=== PATIENT | female | born 1980 | race Caucasian/White ===

== ENCOUNTER 2018-01-12 11:46 | Outpatient (CLI) | payer OTHER ==
[2018-01-20 11:21] LABS: MISCELLANEOUS TEST LAB See Separate Report
== END 2018-01-20 ==
LOC: M LAB 11:46
DX: Z52.4 Kidney donor (principal)
CPT/HCPCS: 99001

== ENCOUNTER 2018-08-31 13:25 | Day surgery (SDC) | payer OTHER ==
[2018-08-31] MEDS: NS 1,000 ML IV (14:28)
[2018-08-31] MEDS ORDERED: fentaNYL 100 MCG/2 ML INJECTION (J3010) As Ordered (15:31)
[2018-08-31] MEDS ORDERED: PROPOFOL 200 MG/20 ML VIAL As Ordered ×2 (15:36→15:37)
[2018-08-31] MEDS ORDERED: LIDOCAINE 2% INJ 100 MG/5 ML SDV (FOR ANES.) As Ordered (15:37)
== END 2018-08-31 16:24 | disposition home or self-care (01) ==
LOC: M OPP 16:24
DX: Z12.11 Encounter for screening for malignant neoplasm of colon (principal); Z86.010 Personal history of colon polyps; K64.0 First degree hemorrhoids; Z98.0 Intestinal bypass and anastomosis status; F45.8 Other somatoform disorders; D64.9 Anemia, unspecified; E16.2 Hypoglycemia, unspecified; M12.9 Arthropathy, unspecified; Z79.899 Other long term (current) drug therapy; Z88.0 Allergy status to penicillin; Z87.828 Personal history of other (healed) physical injury and trauma; Z90.5 Acquired absence of kidney; Z98.84 Bariatric surgery status; Z98.51 Tubal ligation status; Z80.0 Family history of malignant neoplasm of digestive organs
CPT/HCPCS: 45378

== ENCOUNTER → 2019-01-26 | Outpatient (REF) | payer OTHER ==
[~2019-01-26] MED LIST: BIOT50004 PO; CENTCHW3 PO; CITRTAB10 PO; FERR325T3 PO; OMEP40CA2 PO; SYNT150T; VITA500055 PO; VITA500C19 PO; VITA500T3 PO
== END ==
LOC: M SFHCLERA 14:45
PROVIDERS: ATTEND Physician Assistant
DX: R50.9 Fever, unspecified (principal)

== ENCOUNTER → 2022-03-02 | Outpatient (CLI) | payer OTHER ==
[~2022-03-02] MED LIST changes: +CYAN500T14 PO; +E-Z-GAS II EFFERVESCENT PACKET (SODIUM BICARB./CITRIC ACID/SIMETHICONE) As Ordered ONE; +E-Z-HD 98% w/w 340GM SUSP BTL As Ordered ONE; +E-Z-PAQUE 96% w/w SUSP 176GM BTL As Ordered ONE; -OMEP40CA2 PO; +OMEP40CA4 PO; -VITA500T3 PO
== END ==
LOC: M RAD 07:48
PROVIDERS: ATTEND Family Medicine
DX: K21.9 Gastro-esophageal reflux disease without esophagitis (principal); K44.9 Diaphragmatic hernia without obstruction or gangrene; Z98.84 Bariatric surgery status

== ENCOUNTER → 2022-05-27 | Outpatient (REF) | payer OTHER ==
[~2022-05-27] MED LIST changes: +CREO3600 PO; -E-Z-GAS II EFFERVESCENT PACKET (SODIUM BICARB./CITRIC ACID/SIMETHICONE) As Ordered ONE; -E-Z-HD 98% w/w 340GM SUSP BTL As Ordered ONE; -E-Z-PAQUE 96% w/w SUSP 176GM BTL As Ordered ONE; +OMEP-173 PO
== END ==
LOC: M LAB REF 14:37
PROVIDERS: ATTEND Internal Medicine Gastroenterology
DX: F45.8 Other somatoform disorders (principal)

== ENCOUNTER 2022-06-08 07:39 | Day surgery (SDC) | payer OTHER ==
[~2022-06-08] VITALS: Ht 160 cm; Wt 62.6 kg
[~2022-06-08 07:39] MED LIST changes: +NS 1,000 ML IV ONE
[2022-06-08] MEDS ORDERED: LIDOCAINE 2% 100MG/5ML SDV (FOR ANES.) As Ordered ONE (09:02)
[2022-06-08] MEDS ORDERED: propofoL 200 MG/20 ML VIAL As Ordered ONE ×2 (09:02→09:55)
[2022-06-08] MEDS ORDERED: fentaNYL 100 MCG/2 ML INJECTION As Ordered ONE (09:31)
[2022-06-08 10:48] VITALS: BP 150/60
== END 2022-06-08 10:49 | disposition home or self-care (01) ==
LOC: M OPP 07:39
PROVIDERS: ATTEND Internal Medicine Gastroenterology
DX: R19.7 Diarrhea, unspecified (principal); R13.12 Dysphagia, oropharyngeal phase; K21.9 Gastro-esophageal reflux disease without esophagitis; K57.30 Diverticulosis of large intestine without perforation or abscess without bleeding; K64.8 Other hemorrhoids; Z98.0 Intestinal bypass and anastomosis status; E03.9 Hypothyroidism, unspecified; D50.9 Iron deficiency anemia, unspecified; E06.3 Autoimmune thyroiditis; M19.90 Unspecified osteoarthritis, unspecified site; Z80.0 Family history of malignant neoplasm of digestive organs; Z83.3 Family history of diabetes mellitus; Z84.1 Family history of disorders of kidney and ureter; Z80.8 Family history of malignant neoplasm of other organs or systems; Z98.84 Bariatric surgery status; Z88.0 Allergy status to penicillin; Z79.890 Hormone replacement therapy; Z79.899 Other long term (current) drug therapy
CPT/HCPCS: 43239; 43450; 45380; 88305; J3010

== ENCOUNTER 2022-11-02 15:21 | Inpatient (IN) | payer OTHER ==
[~2022-11-02] VITALS: Ht 160 cm; Wt 58.0 kg
[~2022-11-02 15:21] MED LIST changes: -NS 1,000 ML IV ONE
[2022-11-02 16:48] LABS: BASO # 0.1 10^3/uL (0.0-0.2); BASO % 1.6 % (0.0-1.0); EOS # 0.3 10^3/uL (0.0-0.5); EOS % 6.3 % (0.0-3.0); HEMATOCRIT 26.2 % (36.0-47.0); LYMPH # 1.5 10^3/uL (1.5-5.0); LYMPH % 33.8 % (24.0-44.0); MEAN CORPUSCULAR HEMOGLOBIN 18.3 pg (27.0-33.0); MEAN CORPUSCULAR HGB CONC 26.3 g/dl (32.0-36.5); MEAN CORPUSCULAR VOLUME 69.3 fl (80.0-96.0); MONO # 0.4 10^3/uL (0.0-0.8); MONO % 8.9 % (2.0-8.0); NEUTROPHILS # 2.2 10^3/uL (1.5-8.5); NEUTROPHILS % 49.2 % (36.0-66.0); PLATELET COUNT, AUTOMATED 381 10^3/uL (150-450); RED BLOOD COUNT 3.78 10^6/uL (4.00-5.40); WHITE BLOOD COUNT 4.5 10^3/uL (4.0-10.0)
[2022-11-02 16:56] LABS: HEMOGLOBIN 6.9 g/dl (12.0-15.5)
[2022-11-02 17:10] LABS: INR 0.97; PROTHROMBIN TIME 13.1 SECONDS (12.5-14.5)
[2022-11-02 17:13] LABS: ALBUMIN 3.9 G/DL (3.2-5.2); ALKALINE PHOSPHATASE 79 U/L (46-116); ALT/SGPT 10 U/L (7.0-40); AST/SGOT 26 U/L (<34); BILIRUBIN,DIRECT < 0.1 MG/DL (<0.4); BILIRUBIN,TOTAL 0.3 MG/DL (0.3-1.2); BLOOD UREA NITROGEN 11 MG/DL (9-23); CALCIUM LEVEL 9.1 MG/DL (8.5-10.1); CARBON DIOXIDE LEVEL 25 MMOL/L (20-31); CHLORIDE LEVEL 103 MMOL/L (98-107); CREATININE FOR GFR 0.78 MG/DL (0.55-1.30); GLOMERULAR FILTRATION RATE > 60.0 (>58); GLUCOSE, FASTING 83 MG/DL (60-100); POTASSIUM SERUM 4.4 MMOL/L (3.5-5.1); SODIUM LEVEL 138 MMOL/L (136-145)
[2022-11-02 23:09] VITALS: BP 138/74
[2022-11-02] MEDS ORDERED: SYNT150T PO (23:09)
[2022-11-02] MEDS ORDERED: CREO3600 PO ×2 (23:09)
[2022-11-02] MEDS ORDERED: HOME MED LIST COMPLETE! XX SCH (23:10)
[2022-11-02 23:27] VITALS: BP 122/65
[2022-11-03] VITALS (11 sets, daily range): BP systolic 101–133; BP diastolic 54–69
[2022-11-03 06:46] LABS: HEMATOCRIT 27.8 % (36.0-47.0); MEAN CORPUSCULAR HEMOGLOBIN 20.5 pg (27.0-33.0); MEAN CORPUSCULAR HGB CONC 28.8 g/dl (32.0-36.5); MEAN CORPUSCULAR VOLUME 71.3 fl (80.0-96.0); PLATELET COUNT, AUTOMATED 326 10^3/uL (150-450); WHITE BLOOD COUNT 3.9 10^3/uL (4.0-10.0)
[2022-11-03 07:16] LABS: BLOOD UREA NITROGEN 14 MG/DL (9-23); CALCIUM LEVEL 8.5 MG/DL (8.5-10.1); CARBON DIOXIDE LEVEL 22 MMOL/L (20-31); CHLORIDE LEVEL 106 MMOL/L (98-107); CREATININE FOR GFR 0.75 MG/DL (0.55-1.30); GLOMERULAR FILTRATION RATE > 60.0 (>58); GLUCOSE, FASTING 74 MG/DL (60-100); POTASSIUM SERUM 4.4 MMOL/L (3.5-5.1); SODIUM LEVEL 140 MMOL/L (136-145)
[2022-11-03 07:42] LABS: FERRITIN 1.3 NG/ML (7.3-270.7); FOLATE 12.1 NG/ML (>5.4); VITAMIN B12 LEVEL 118 PG/ML (211-911)
[2022-11-03 07:44] LABS: IRON (FE) 137 UG/DL (50-170); PERCENT SATURATION 34.8 % (13.2-45.0); TOTAL IRON BINDING CAPACITY 394 UG/DL (250-425)
[2022-11-03] MEDS ORDERED: FOLIC ACID 1MG TAB PO SCH (09:00)
[2022-11-03] MEDS ORDERED: CYANOCOBALAMIN 1,000MCG/ML 1ML VIAL IM SCH (09:00)
[2022-11-03 12:41] LABS: HEMATOCRIT 31.7 % (36.0-47.0); MEAN CORPUSCULAR HEMOGLOBIN 20.5 pg (27.0-33.0); MEAN CORPUSCULAR HGB CONC 28.4 g/dl (32.0-36.5); MEAN CORPUSCULAR VOLUME 72.4 fl (80.0-96.0); PLATELET COUNT, AUTOMATED 346 10^3/uL (150-450); RED BLOOD COUNT 4.38 10^6/uL (4.00-5.40); WHITE BLOOD COUNT 4.8 10^3/uL (4.0-10.0)
[2022-11-03] MEDS ORDERED: FERRIC CARBOXYMALTOSE INJ 750 MG, VIAL MATE ADAPTER 1 EACH in NS 250 ML IV ONE (13:00)
[2022-11-03] MEDS ORDERED: FOLI1TAB11 PO (13:21)
[2022-11-03] MEDS ORDERED: B-1225002 SL (13:21)
== END 2022-11-03 15:22 | disposition home or self-care (01) | DRG 812 ==
LOC: M ED 15:21 → M ED INP 23:06 → M PED 11-03 03:37
PROVIDERS: ADMIT Family Medicine; ATTEND Student in an Organized Health Care Education/Training Program
PROC: 30233N1 Transfusion of Nonautologous Red Blood Cells into Peripheral Vein, Percutaneous Approach (ICD-10-PCS; principal; 2022-11-02)
DX: D50.9 Iron deficiency anemia, unspecified (principal); E06.3 Autoimmune thyroiditis; E53.8 Deficiency of other specified B group vitamins; K21.9 Gastro-esophageal reflux disease without esophagitis; K86.89 Other specified diseases of pancreas; Z90.5 Acquired absence of kidney; Z98.84 Bariatric surgery status; Z20.822 Contact with and (suspected) exposure to COVID-19; Z79.890 Hormone replacement therapy; Z79.899 Other long term (current) drug therapy; Z88.0 Allergy status to penicillin

== ENCOUNTER → 2022-11-04 | Outpatient (CLI) | payer OTHER ==
[~2022-11-04] MED LIST changes: +B-1225002 SL; +FOLI1TAB11 PO; +SYNT150T PO
== END ==
LOC: M SOG 07:52
PROVIDERS: ATTEND Orthopaedic Surgery Adult Reconstructive Orthopaedic Surgery
DX: M25.561 Pain in right knee (principal)

== ENCOUNTER → 2022-11-28 | Outpatient (CLI) | payer OTHER ==
[~2022-11-28] MED LIST changes: +BIOT1CAP2 PO; +OYST1TAB PO; +VITMTA PO
== END ==
LOC: M LABSMTC 11:03
PROVIDERS: ATTEND Anesthesiology
DX: Z01.812 Encounter for preprocedural laboratory examination (principal); Z11.52 Encounter for screening for COVID-19

== ENCOUNTER 2022-12-01 06:13 | Day surgery (SDC) | payer OTHER ==
[~2022-12-01] VITALS: Ht 160 cm; Wt 60.9 kg
[~2022-12-01 06:13] MED LIST changes: +CLINDAMYCIN 600 MG in IV 1 EA IV ONE
[2022-12-01] MEDS ORDERED: LR 1,000 ML IV SCH ×2 (06:35→08:55)
[2022-12-01] MEDS ORDERED: ONDANSETRON 4MG 2ML VIAL As Ordered ONE (07:06)
[2022-12-01] MEDS ORDERED: LIDOCAINE 2% 100MG/5ML SDV (FOR ANES.) As Ordered ONE (07:06)
[2022-12-01] MEDS ORDERED: MIDAZOLAM INJ 2MG/2ML VIAL As Ordered ONE (07:06)
[2022-12-01] MEDS ORDERED: propofoL 200 MG/20 ML VIAL As Ordered ONE ×2 (07:06→07:10)
[2022-12-01] MEDS ORDERED: fentaNYL 100 MCG/2 ML INJECTION As Ordered ONE ×2 (07:07→09:58)
[2022-12-01] MEDS ORDERED: BUPIVACAINE HCL 0.5% 30ML VIAL As Ordered ONE (07:10)
[2022-12-01] MEDS ORDERED: LIDOCAINE 1% SDV 30ML VIAL As Ordered ONE (07:10)
[2022-12-01] MEDS ORDERED: ACETAMINOPHEN 1000MG 100ML IV BAG As Ordered ONE ×2 (07:11→10:13)
[2022-12-01] MEDS ORDERED: CLINDAMYCIN 600MG/50ML PREMIX BAG As Ordered ONE (07:48)
[2022-12-01] MEDS ORDERED: KETOROLAC 60MG 2ML VIAL As Ordered ONE (08:43)
[2022-12-01] MEDS ORDERED: ONDANSETRON 4MG 2ML VIAL IV PRN (08:55)
[2022-12-01] MEDS ORDERED: fentaNYL 100 MCG/2 ML INJECTION IV PRN (08:55)
[2022-12-01] MEDS ORDERED: oxyCODONE 5MG TAB PO PRN (08:55)
[2022-12-01] MEDS ORDERED: OXYC1TAB23 PO (08:59)
[2022-12-01] MEDS ORDERED: ONDA-83 PO (09:00)
[2022-12-01] MEDS ORDERED: METOCLOPRAMIDE INJ 10MG/2ML VIAL IV ONE (09:05)
[2022-12-01 12:00] VITALS: BP 111/64
== END 2022-12-01 12:00 | disposition home or self-care (01) ==
LOC: M SDC 06:13
PROVIDERS: ATTEND Podiatrist Foot & Ankle Surgery
DX: M21.612 Bunion of left foot (principal); M20.12 Hallux valgus (acquired), left foot; E06.3 Autoimmune thyroiditis; D50.9 Iron deficiency anemia, unspecified; Z90.5 Acquired absence of kidney; Z79.899 Other long term (current) drug therapy; Z79.890 Hormone replacement therapy; Z88.0 Allergy status to penicillin
CPT/HCPCS: 28299; 88300; 97116; 97530; C1713; J0131; J1100; J1885; J2250; J2405; J2765; J3010; S0020; S0077

== ENCOUNTER 2022-12-07 09:37 | Outpatient (CLI) | payer OTHER ==
[~2022-12-07] VITALS: Ht 160 cm; Wt 59.1 kg
[~2022-12-07 09:37] MED LIST changes: +ACETAMINOPHEN TAB 650MG DOSE (2X325MG) PO ONE; +ALBUTEROL SULFATE 2.5MG/0.5ML INH NEB SOLN INH PRN; -CLINDAMYCIN 600 MG in IV 1 EA IV ONE; +EPINEPHrine INJ 1 MG/ML 1ML AMP IM PRN; +IRON SUCROSE 200 MG in NS 100 ML OVER 1 HR IV ONE; +NS 1,000 ML IV SCH; +ONDA-83 PO; +OXYC1TAB23 PO; +diphenhydrAMINE 50MG/ML VIAL IV PRN; +methylPREDNISolone 125MG 2ML VIAL IV PRN
[2022-12-07 09:45] VITALS: BP 126/80
[2022-12-07 11:40] VITALS: BP 108/57
== END 2022-12-07 11:45 | disposition home or self-care (01) ==
LOC: M INFU 09:37
PROVIDERS: ATTEND Student in an Organized Health Care Education/Training Program
DX: D50.9 Iron deficiency anemia, unspecified (principal); Z88.0 Allergy status to penicillin
CPT/HCPCS: 96365; J1756

== ENCOUNTER 2022-12-14 08:15 | Outpatient (CLI) | payer OTHER ==
[~2022-12-14] VITALS: Ht 160 cm; Wt 59.0 kg
[2022-12-14 08:15] VITALS: BP 115/68
[2022-12-14 09:45] VITALS: BP 115/62
== END 2022-12-14 09:45 | disposition home or self-care (01) ==
LOC: M INFU 08:15
PROVIDERS: ATTEND Student in an Organized Health Care Education/Training Program
DX: D50.0 Iron deficiency anemia secondary to blood loss (chronic) (principal); Z88.0 Allergy status to penicillin
CPT/HCPCS: 96365; J1756

== ENCOUNTER → 2022-12-21 | Outpatient (CLI) | payer OTHER ==
[~2022-12-21] VITALS: Ht 165.1 cm; Wt 60.0 kg
[2022-12-21 10:26] VITALS: BP 132/63
[2022-12-21 11:45] VITALS: BP 118/75
== END ==
LOC: M INFU 10:15
PROVIDERS: ATTEND Student in an Organized Health Care Education/Training Program
DX: D50.0 Iron deficiency anemia secondary to blood loss (chronic) (principal); Z88.0 Allergy status to penicillin
CPT/HCPCS: 96365; J1756

== ENCOUNTER 2022-12-28 09:07 | Outpatient (CLI) | payer OTHER ==
[~2022-12-28] VITALS: Ht 165.1 cm; Wt 60.0 kg
[2022-12-28 09:23] VITALS: BP 127/67
== END 2022-12-28 10:45 | disposition home or self-care (01) ==
LOC: M INFU 09:07
PROVIDERS: ATTEND Student in an Organized Health Care Education/Training Program
DX: D50.8 Other iron deficiency anemias (principal); Z88.0 Allergy status to penicillin
CPT/HCPCS: 96365; J1756

== ENCOUNTER 2023-01-04 09:40 | Outpatient (CLI) | payer OTHER ==
[~2023-01-04] VITALS: Ht 165.1 cm; Wt 60.0 kg
[2023-01-04 09:58] VITALS: BP 130/71
== END 2023-01-04 13:20 | disposition home or self-care (01) ==
LOC: M INFU 09:40
PROVIDERS: ATTEND Student in an Organized Health Care Education/Training Program
DX: D50.0 Iron deficiency anemia secondary to blood loss (chronic) (principal); Z88.0 Allergy status to penicillin
CPT/HCPCS: 96365; J1756

== ENCOUNTER → 2023-06-24 | Outpatient (CLI) | payer OTHER ==
[~2023-06-24] MED LIST changes: -ACETAMINOPHEN TAB 650MG DOSE (2X325MG) PO ONE; -ALBUTEROL SULFATE 2.5MG/0.5ML INH NEB SOLN INH PRN; +CYAN1000VL; -EPINEPHrine INJ 1 MG/ML 1ML AMP IM PRN; +FERR325T19 PO; +GABA-1171 PO; -IRON SUCROSE 200 MG in NS 100 ML OVER 1 HR IV ONE; -NS 1,000 ML IV SCH; +SYNT25TA PO; +VITA500T9 PO; -diphenhydrAMINE 50MG/ML VIAL IV PRN; -methylPREDNISolone 125MG 2ML VIAL IV PRN
== END ==
LOC: M SOG 07:54
PROVIDERS: ATTEND Orthopaedic Surgery
DX: M25.561 Pain in right knee (principal)

== ENCOUNTER 2023-06-30 09:41 | Day surgery (SDC) | payer OTHER ==
[~2023-06-30] VITALS: Ht 160 cm; Wt 67.6 kg
[2023-06-30 10:03] LABS: HEMATOCRIT 41.5 % (36.0-47.0)
[2023-06-30] MEDS ORDERED: propofoL 200 MG/20 ML VIAL As Ordered ONE (11:15)
[2023-06-30] MEDS ORDERED: LIDOCAINE 2% 100MG/5ML SDV (FOR ANES.) As Ordered ONE (11:15)
[2023-06-30] MEDS ORDERED: fentaNYL 100 MCG/2 ML INJECTION As Ordered ONE (11:15)
[2023-06-30] MEDS ORDERED: ONDANSETRON 4MG 2ML VIAL As Ordered ONE (11:15)
[2023-06-30] MEDS ORDERED: KETOROLAC 60MG 2ML VIAL As Ordered ONE (11:15)
[2023-06-30] MEDS ORDERED: MIDAZOLAM INJ 2MG/2ML VIAL As Ordered ONE (11:15)
[2023-06-30] MEDS ORDERED: SILVER NITRATE APPLICATOR (1 = QTY 10) As Ordered ONE (11:26)
[2023-06-30] MEDS ORDERED: LIDOCAINE 1% SDV 30ML VIAL As Ordered ONE (11:26)
[2023-06-30] MEDS ORDERED: ACETAMINOPHEN 1000MG 100ML IV BAG As Ordered ONE (11:53)
[2023-06-30] MEDS ORDERED: fentaNYL 100 MCG/2 ML INJECTION IV PRN (12:30)
[2023-06-30] MEDS ORDERED: ONDANSETRON 4MG 2ML VIAL IV PRN (12:30)
[2023-06-30] MEDS ORDERED: LR 1,000 ML IV SCH (12:30)
[2023-06-30] MEDS ORDERED: HYDROMORPHONE HCL 0.5 MG/ 0.5 ML SYRINGE IV PRN (12:30)
[2023-06-30] MEDS ORDERED: oxyCODONE 5MG TAB PO PRN ×2 (12:30→12:45)
[2023-06-30 14:37] VITALS: BP 117/72; TEMP 97; O2SAT 97
== END 2023-06-30 14:37 | disposition home or self-care (01) ==
LOC: M SDC 09:41
PROVIDERS: ATTEND Obstetrics & Gynecology
DX: N85.8 Other specified noninflammatory disorders of uterus (principal); Z88.0 Allergy status to penicillin
CPT/HCPCS: 36415; 58558; 81025; 85014; 85018; 88305; J0131; J1100; J1885; J2250; J2405; J3010

== ENCOUNTER 2023-08-25 08:10 | Day surgery (SDC) | payer OTHER ==
[~2023-08-25] VITALS: Ht 160 cm; Wt 68.1 kg
[~2023-08-25 08:10] MED LIST changes: +SILVER NITRATE APPLICATOR (1 = QTY 10) As Ordered ONE
[2023-08-25] MEDS ORDERED: LR 1,000 ML IV SCH ×2 (08:20→11:50)
[2023-08-25 08:39] LABS: HEMATOCRIT 42.9 % (36.0-47.0); HEMOGLOBIN 14.7 g/dl (12.0-15.5)
[2023-08-25] MEDS ORDERED: LIDOCAINE 2% 100MG/5ML SDV (FOR ANES.) As Ordered ONE (09:17)
[2023-08-25] MEDS ORDERED: ROCURONIUM BROMIDE 50MG/5ML VIAL As Ordered ONE (09:17)
[2023-08-25] MEDS ORDERED: propofoL 200 MG/20 ML VIAL As Ordered ONE (09:17)
[2023-08-25] MEDS ORDERED: fentaNYL 100 MCG/2 ML INJECTION As Ordered ONE (09:18)
[2023-08-25] MEDS ORDERED: MIDAZOLAM INJ 2MG/2ML VIAL As Ordered ONE (09:18)
[2023-08-25] MEDS ORDERED: ONDANSETRON 4MG 2ML VIAL As Ordered ONE (10:24)
[2023-08-25] MEDS ORDERED: PHENYLephrine 500MCG 5ML (100MCG/ML) SYRINGE As Ordered ONE (10:24)
[2023-08-25] MEDS ORDERED: ePHEDrine SULFATE 25 MG/5 ML(5MG/ML) SYRINGE As Ordered ONE (10:36)
[2023-08-25] MEDS ORDERED: SUGAMMADEX SODIUM 500 MG/5 ML VIAL (BRIDION) As Ordered ONE (10:41)
[2023-08-25] MEDS ORDERED: ACETAMINOPHEN 1000MG 100ML IV BAG As Ordered ONE (10:41)
[2023-08-25] MEDS ORDERED: HYDROmorphone HCL 2MG/ML 1ML VIAL As Ordered ONE (10:42)
[2023-08-25] MEDS ORDERED: KETOROLAC 60MG 2ML VIAL As Ordered ONE (11:13)
[2023-08-25] MEDS ORDERED: ONDANSETRON 4MG 2ML VIAL IV PRN (11:50)
[2023-08-25] MEDS ORDERED: fentaNYL 100 MCG/2 ML INJECTION IV PRN (11:50)
[2023-08-25] MEDS: oxyCODONE 5MG TAB PO PRN ×2 (12:18→12:51)
[2023-08-25] MEDS: HYDROMORPHONE HCL 0.5 MG/ 0.5 ML SYRINGE IV PRN ×2 (12:23→12:30)
[2023-08-25] MEDS ORDERED: METOCLOPRAMIDE INJ 10MG/2ML VIAL IV STA (13:16)
[2023-08-25 14:39] VITALS: BP 117/72; TEMP 97.1; O2SAT 95
== END 2023-08-25 14:45 | disposition home or self-care (01) ==
LOC: M SDC 08:10
PROVIDERS: ATTEND Obstetrics & Gynecology
DX: N93.8 Other specified abnormal uterine and vaginal bleeding (principal); Z30.2 Encounter for sterilization; N99.4 Postprocedural pelvic peritoneal adhesions; E06.3 Autoimmune thyroiditis; K21.9 Gastro-esophageal reflux disease without esophagitis; Z79.899 Other long term (current) drug therapy
CPT/HCPCS: 36415; 58563; 58661; 81025; 85014; 85018; 88302; J0131; J0665; J1100; J1170; J1885; J2250; J2371; J2405; J2765; J3010

== ENCOUNTER 2023-09-07 07:21 | Day surgery (SDC) | payer SELFPAY ==
[~2023-09-07] VITALS: Ht 160 cm; Wt 68.2 kg
[~2023-09-07 07:21] MED LIST changes: +ACETAMINOPHEN 1000MG 100ML IV BAG As Ordered ONE; -BIOT50004 PO; +BIOT5CAP8 PO; +KETOROLAC 60MG 2ML VIAL As Ordered ONE; +LIDOCAINE 2% 100MG/5ML SDV (FOR ANES.) As Ordered ONE; +MIDAZOLAM INJ 2MG/2ML VIAL As Ordered ONE; +ONDANSETRON 4MG 2ML VIAL As Ordered ONE; +OXYC-517 PO; -SILVER NITRATE APPLICATOR (1 = QTY 10) As Ordered ONE; +dexmedeTOMIDine (4MCG/ML)200MCG/50ML BTL (PRECEDEX) As Ordered ONE; +fentaNYL 100 MCG/2 ML INJECTION As Ordered ONE; +propofoL 200 MG/20 ML VIAL As Ordered ONE
[2023-09-07] MEDS ORDERED: LR 1,000 ML IV SCH (07:45)
[2023-09-07] MEDS ORDERED: LIDOCAINE 1% SDV 30ML VIAL As Ordered ONE (07:55)
[2023-09-07] MEDS ORDERED: CLINDAMYCIN 900 MG in IV 1 EA IV ONE (08:05)
[2023-09-07] MEDS ORDERED: METOCLOPRAMIDE INJ 10MG/2ML VIAL As Ordered ONE (08:33)
[2023-09-07 09:30] VITALS: BP 103/59; TEMP 98.1; O2SAT 96
== END 2023-09-07 09:40 | disposition home or self-care (01) ==
LOC: M SDC 07:21
PROVIDERS: ATTEND Podiatrist Foot & Ankle Surgery
DX: T84.84XA Pain due to internal orthopedic prosthetic devices, implants and grafts, initial encounter (principal); E03.9 Hypothyroidism, unspecified; E50.9 Vitamin A deficiency, unspecified; Z79.899 Other long term (current) drug therapy; Z79.890 Hormone replacement therapy; Y92.9 Unspecified place or not applicable; Y79.2 Prosthetic and other implants, materials and accessory orthopedic devices associated with adverse incidents; Z90.5 Acquired absence of kidney
CPT/HCPCS: 20680; J0131; J0665; J0737; J1100; J1885; J2250; J2405; J2765; J3010

== ENCOUNTER → 2024-01-16 | Outpatient (REF) | payer OTHER ==
[~2024-01-16] MED LIST changes: -ACETAMINOPHEN 1000MG 100ML IV BAG As Ordered ONE; -KETOROLAC 60MG 2ML VIAL As Ordered ONE; -LIDOCAINE 2% 100MG/5ML SDV (FOR ANES.) As Ordered ONE; -MIDAZOLAM INJ 2MG/2ML VIAL As Ordered ONE; -ONDANSETRON 4MG 2ML VIAL As Ordered ONE; +THERTAB52 PO; -dexmedeTOMIDine (4MCG/ML)200MCG/50ML BTL (PRECEDEX) As Ordered ONE; -fentaNYL 100 MCG/2 ML INJECTION As Ordered ONE; -propofoL 200 MG/20 ML VIAL As Ordered ONE
[2024-01-16 12:58] LABS: APPEARANCE, URINE CLEAR (CLEAR); BACTERIA, URINE AUTO NEGATIVE (NEGATIVE); BILIRUBIN, URINE AUTO NEGATIVE (NEGATIVE); BLOOD, URINE BLOOD NEGATIVE (NEGATIVE); COLOR, URINE COLORLESS (YELLOW); GLUCOSE, URINE (UA) AUTO NEGATIVE (NEGATIVE); KETONE, URINE AUTO NEGATIVE (NEGATIVE); LEUKOCYTE ESTERASE, URINE AUTO NEGATIVE (NEGATIVE); NITRITE, URINE AUTO NEGATIVE (NEGATIVE); PROTEIN, URINE AUTO NEGATIVE (NEGATIVE); RBC, URINE AUTO 0 /HPF (0-3); SPECIFIC GRAVITY URINE AUTO 1.002 (1.002-1.035); SQUAMOUS EPITHELIAL CELL UR AU 0 /HPF (0-6); UROBILINOGEN, URINE AUTO 0.2 mg/dL (0.0-2.0); WBC, URINE AUTO 0 /HPF (0-3)
== END ==
LOC: M SMT 12:20
PROVIDERS: ATTEND Nurse Practitioner Family
DX: R39.15 Urgency of urination (principal)

== ENCOUNTER → 2024-05-17 | Outpatient (CLI) | payer OTHER ==
[~2024-05-17] MED LIST changes: +PROHANCE 279.3MG/ML 15ML VIAL ONE
== END ==
LOC: M PLAIMG 10:06
PROVIDERS: ATTEND Podiatrist Foot & Ankle Surgery
DX: M79.672 Pain in left foot (principal); Z98.890 Other specified postprocedural states
CPT/HCPCS: 73720; A9576

== ENCOUNTER 2024-10-17 10:58 | Day surgery (SDC) | payer OTHER ==
[~2024-10-17] VITALS: Ht 160 cm; Wt 63.4 kg
[~2024-10-17 10:58] MED LIST changes: +CALC-176 PO; +ERGO500029; +LEVO175T2 PO; +OCUV1CAP4 PO; -PROHANCE 279.3MG/ML 15ML VIAL ONE; +VIBE75TA; -VITA500C19 PO; +VITA500C22 PO
[2024-10-17] MEDS ORDERED: NS (Normal Saline) 0.9% 1,000 ML IV SCH (11:50)
[2024-10-17] MEDS ORDERED: MIDAZOLAM INJ 2MG/2ML VIAL As Ordered ONE (12:41)
[2024-10-17] MEDS ORDERED: fentaNYL 100 MCG/2 ML INJECTION As Ordered ONE (12:41)
[2024-10-17] MEDS: ceFAZolin SOD 2 GM in IV 1 EA IV ONE (13:16)
[2024-10-17] MEDS: LIDOCAINE 1% MDV 20ML VIAL As Ordered ONE (13:25)
[2024-10-17] MEDS ORDERED: ONDANSETRON 4MG 2ML VIAL As Ordered ONE (14:04)
[2024-10-17] MEDS ORDERED: propofoL 200 MG/20 ML VIAL As Ordered ONE (14:06)
[2024-10-17] MEDS: ACETAMINOPHEN 325 MG TAB PO STA (14:53)
[2024-10-17 15:05] VITALS: BP 110/67; TEMP 97; O2SAT 99
== END 2024-10-17 15:09 | disposition home or self-care (01) ==
LOC: M SDC 10:58
PROVIDERS: ATTEND Podiatrist Foot & Ankle Surgery
DX: M79.2 Neuralgia and neuritis, unspecified (principal); Z88.0 Allergy status to penicillin; Z79.899 Other long term (current) drug therapy
CPT/HCPCS: 28288; 64704; J0665; J0690; J1100; J2250; J2405; J3010

== ENCOUNTER → 2024-11-22 | Outpatient (REF) | payer OTHER ==
[~2024-11-22] MED LIST changes: -CITRTAB10 PO; +CITRTAB11 PO
== END ==
LOC: M LAB REF 16:17
PROVIDERS: ATTEND Podiatrist Foot & Ankle Surgery
DX: L03.116 Cellulitis of left lower limb (principal)